=== PATIENT | male | born 1955 | race Caucasian/White ===

== ENCOUNTER 2020-05-01 06:47 | Inpatient (IN) | payer BC, MEDICARE ==
[~2020-05-01] VITALS: Ht 180.3 cm; Wt 117.6 kg
[~2020-05-01 06:47] MED LIST: HYDR-531 PO
[2020-05-01] MEDS ORDERED: ceFAZolin 1GM/50ML 100 ML IV ONE (07:12)
[2020-05-01] MEDS ORDERED: ACETAMINOPHEN IV 100 ML IV ONE (07:12)
[2020-05-01] MEDS ORDERED: CELECOXIB 100 MG CAP PO ONE (07:15)
[2020-05-01] MEDS: ceFAZolin 1GM 2 GM in D5W 5% 100 ML IV ONE ×2 (07:15→07:42)
[2020-05-01] MEDS ORDERED: PREGABALIN CAPSULE 75 MG CAP PO ONE (07:15)
[2020-05-01] MEDS ORDERED: ACETAMINOPHEN IV 1000 MG/100ML (10MG/ML) IV ONE (07:15)
[2020-05-01] MEDS ORDERED: SUCCINYLCHOLINE CHLORIDE 20 MG/ML 10ML VIAL IV ONE (07:35)
[2020-05-01] MEDS ORDERED: fentaNYL CITRATE 100 MCG/2 ML VL ONE ×2 (07:48→08:12)
[2020-05-01] MEDS ORDERED: MIDAZOLAM HCL 1MG/1ML-2 ML VIAL ONE (07:48)
[2020-05-01] MEDS ORDERED: MORPHINE SULF(PF) 0.5MG/ML 10ML VIAL ONE (07:48)
[2020-05-01] MEDS ORDERED: PROPOFOL 10 MG/ML 20 ML IV ONE (07:50)
[2020-05-01] MEDS ORDERED: ROCURONIUM 10MG/ML 10ML VIAL IV ONE (08:12)
[2020-05-01] MEDS ORDERED: HYDROmorphone HCL 2 MG/ML VL ONE (08:39)
[2020-05-01] MEDS ORDERED: ePHEDrine SULFATE 50 MG/ML AMP IV PRN (09:15)
[2020-05-01] MEDS ORDERED: ONDANSETRON HCL 4 MG/2 ML VIAL IV PRN ×2 (09:15→10:30)
[2020-05-01] MEDS ORDERED: HYDROmorphone HCL 2 MG/ML VL IV PRN (09:15)
[2020-05-01] MEDS ORDERED: hydrALAZINE HCL 20 MG/ML VL IV PRN (09:15)
[2020-05-01] MEDS: LACTATED RINGER'S 1,000 ML IV SCH ×2 (10:21→20:21)
[2020-05-01] MEDS ORDERED: ACETAMINOPHEN 325 MG TAB PO PRN (10:30)
[2020-05-01] MEDS ORDERED: NITROGLYCERIN 0.4 MG SL TAB SL PRN (10:30)
[2020-05-01] MEDS ORDERED: MORPHINE SULF INJ 2 MG/ML SYRINGE 1ML IV PRN (10:30)
[2020-05-01] MEDS ORDERED: ceFAZolin 1GM/50ML 50 ML IV SCH (10:30)
[2020-05-01] MEDS ORDERED: ENOXAPARIN SOD 40 MG/0.4 ML SYRINGE SC ONE (10:45)
[2020-05-01] MEDS: HYDROmorphone HCL 2 MG/ML VL IV PRN ×5 (10:49→20:35)
--- NOTE | 2020-05-01 12:24 | NUR ---
Report received from maddie GRAPHIC DESIGNER. RLPASTORA brought to bed 293B following left knee arthroplasty, on cardiac care unit nurse and portable oxygen. Patient transfered to unit bed, connected to traffic monitor specialist #[id number] and oxygen. Surgical site assessed for any bleeding, redness or swelling. Pedal pulses on affected leg assessed for positive tissue perfusion. Patient instructed on need to notify staff immediately if any pain, burning or wetness to site. All questions and concerns addressed, patient verbalized understanding of all education and instruction. See notes for any further.
[2020-05-01 12:27] VITALS: BP 144/92
[2020-05-01 13:00] VITALS: BP 144/92
[2020-05-01] MEDS ORDERED: INDO50CA82 PO (13:42)
[2020-05-01] MEDS ORDERED: ALL100T PO (13:42)
[2020-05-01] MEDS: ceFAZolin 1GM/50ML 50 ML IV SCH ×2 (14:03→18:51)
[2020-05-01] MEDS: KETOROLAC TROMETH 30 MG/ML 1ML VIAL IV SCH ×2 (14:05→17:44)
[2020-05-01] MEDS: traMADol HCL 50 MG TAB PO PRN (14:06)
[2020-05-01] MEDS: SODIUM CHLOR 0.9% PF (SALINE LOCK) 10ML VIAL/SYR IV SCH ×2 (14:11→22:11)
--- NOTE | 2020-05-01 15:00 | NUR ---
BEDSIDE PULSE PLACED PER DOCTOR'S ORDERS. ALARMS ARE ON AND FUNCTIONING PROPERLY. BEDSIDE PLUGGED INTO REDWALL OUTLET.
[2020-05-01 16:00] VITALS: BP 158/95
--- NOTE | 2020-05-01 19:00 | NUR ---
CLOSING SHIFT NOTE ENDORSED CARE TO NEUROPHYSIOLOGY TECH RN NADER. PATIENT HAS NO S/S OF DISTRESS/SOB OR PAIN AT THIS TIME.
--- NOTE | 2020-05-01 19:01 | NUR ---
ENDORSED MRSA SWAB TO RN NADER.
--- NOTE | 2020-05-01 19:25 | NUR ---
Opening Shift Note: Assumed care of patient, awake and alert. No S/S of distress/SOB or pain. Bed in lowest locked position, side rails up x 2, call light within reach. Patient on CPM at 45 degrees. Patient instructed on POC and to call for assist PRN, will continue to monitor for changes Q1hr and PRN.
--- NOTE | 2020-05-01 20:37 | NUR ---
MRSA SWAB COLLECTED AND SENT
[2020-05-01 21:54] VITALS: BP 132/70
[2020-05-01] MEDS: DOCUSATE SOD 100 MG CAP PO SCH (22:00)
--- NOTE | 2020-05-02 00:17 | NUR ---
PATIENT REQUESTED TO HAVE CMP MACHINE STOPPED SO HE CAN GET SOME SLEEP.
[2020-05-02] MEDS: ceFAZolin 1GM/50ML 50 ML IV SCH (00:37)
[2020-05-02] MEDS: KETOROLAC TROMETH 30 MG/ML 1ML VIAL IV SCH ×4 (00:37→18:12)
[2020-05-02] MEDS: HYDROmorphone HCL 2 MG/ML VL IV PRN ×2 (02:55→23:20)
--- NOTE | 2020-05-02 03:26 | NUR ---
CLOSING NOTE: Patient resting in bed. No S/S of distress. Care endorsed.
--- NOTE | 2020-05-02 03:30 | NUR ---
Opening Shift Note Assumed care of patient, asleep, even, unlabored breaths. No S/S of distress/SOB or pain. Will continue to monitor for changes Q1hr and PRN.
[2020-05-02 05:00] VITALS: BP 139/75
[2020-05-02] MEDS: SODIUM CHLOR 0.9% PF (SALINE LOCK) 10ML VIAL/SYR IV SCH ×3 (05:39→21:27)
[2020-05-02] MEDS: LACTATED RINGER'S 1,000 ML IV SCH ×3 (05:40→21:27)
--- NOTE | 2020-05-02 05:45 | NUR ---
BANUELOS BANUELOS CATHETER REMOVED PER MD ORDERS. EDUCATED PATIENT TO INFORM THIS RN OR THE VOLLEYBALL PLAYER OF WHEN HE URINATES. APPROXIMATELY 125ML CLOUDY ORANGE YELLOW URINE DISCARDED WITH BANUELOS
[2020-05-02 05:56] LABS: Hematocrit 36.8 % (41.0-53.0); Hemoglobin 12.5 g/dL (13.5-17.5)
[2020-05-02 06:17] LABS: Calcium 8.2 mg/dL (8.5-10.1); Potassium 4.1 mmol/L (3.5-5.1)
[2020-05-02 06:20] LABS: BUN/Creatinine Ratio 20.5; Bilirubin, Total 0.6 mg/dL (0.2-1.0); Total Protein 6.8 g/dL (6.4-8.2)
[2020-05-02] MEDS: HYDROcodone-ACET 10/325MG TAB PO PRN ×2 (08:08→15:15)
[2020-05-02 08:57] VITALS: BP 127/76
[2020-05-02] MEDS: ENOXAPARIN SOD 40 MG/0.4 ML SYRINGE SC SCH (09:41)
[2020-05-02] MEDS: DOCUSATE SOD 100 MG CAP PO SCH ×2 (09:41→21:27)
--- NOTE | 2020-05-02 10:30 | NUR ---
PHYSICAL THERAPY PATIENT AMBULATING IN HALLS WITH PHYSICAL THERAPY. NO S/S OF DISTRESS, SOB. NO C/O PAIN AT THIS TIME. WILL CONTINUE TO MONITOR
--- NOTE | 2020-05-02 11:45 | NUR ---
CPM PATIENT ON CPM FOR LEFT KNEE. TOLERATING WELL
[2020-05-02 12:42] VITALS: BP 127/69
--- NOTE | 2020-05-02 15:07 | NUR ---
MICROBIOLOGY MICROBIOLOGY CALLED RE: PATIENT POSITIVE FOR MRSA IN NARES. AWARE
[2020-05-02 16:59] VITALS: BP 131/80
[2020-05-02] MEDS: traMADol HCL 50 MG TAB PO PRN (21:27)
[2020-05-02 22:00] VITALS: BP 121/68
[2020-05-03] MEDS: HYDROmorphone HCL 2 MG/ML VL IV PRN ×2 (03:00→09:09)
[2020-05-03 05:06] VITALS: BP_SYST 143; BP_SYST 155; BP_DIAS 71; BP_DIAS 80
[2020-05-03] MEDS: SODIUM CHLOR 0.9% PF (SALINE LOCK) 10ML VIAL/SYR IV SCH ×3 (05:36→21:53)
[2020-05-03] MEDS ORDERED: HYDROcodone-ACET 10/325MG TAB PO PRN (07:45)
[2020-05-03 08:06] LABS: Hematocrit 34.5 % (41.0-53.0); Hemoglobin 11.9 g/dL (13.5-17.5)
[2020-05-03 08:50] VITALS: BP 134/81
[2020-05-03] MEDS: ENOXAPARIN SOD 40 MG/0.4 ML SYRINGE SC SCH (09:10)
[2020-05-03] MEDS: DOCUSATE SOD 100 MG CAP PO SCH ×3 (09:11→21:53)
[2020-05-03] MEDS: oxyCODONE ER 10 MG TAB PO SCH ×2 (10:46→21:53)
[2020-05-03] MEDS: LACTATED RINGER'S 1,000 ML IV SCH ×2 (12:21→21:53)
[2020-05-03 12:54] VITALS: BP 138/83
--- NOTE | 2020-05-03 15:46 | NUR ---
Assessment Patient is a 64-year-old male who is alert and oriented. Prior to admission patient lived home with his Carmen and functioned independently. Patient informed me he can care for his own ADLs. Patient informed me he does not have any medical equipment now. Per patient prior to getting surgery provider order a CPM for him to take home with him which he has at bedside. Per patient he will return to his prior living arrangements and family will transport him home. Advised patient there is a social service consult for a walker and home health physical therapy twice a week for two weeks. Advised patient clinical information will be faxed to contracted agency for home health and [facility] for the walker. Informed patient he has a right to participate in all discharge planning. Patient verbalized understanding and agreed to discharge plan. Per Kathe with [facility] walker will be deliver to bedside between 12:00-14:00. Faxed clinical information to [facility] [phone]. Per Jaja with [facility] patient has a 10% co-pay. Per Jaja she contact patient regarding co-pay and patient agrees to pay co-pay. Per Jaja with [facility] patient has been accepted and service to start within 24-48hrs upon d/c day. Patient was informed with co-pay. Patient verbalize understanding. Addendum: 05/03/20 at 1552 by YANG MARTINS Amended: Links added.
--- NOTE | 2020-05-03 16:00 | NUR ---
DR BARFIELD AT BEDSIDE. NEW ORDERS RECEIVED FOR AM LABS.
[2020-05-03 17:00] VITALS: BP 137/86
--- NOTE | 2020-05-03 17:06 | NUR ---
PATIENT HAS HAD CPM ON TWICE THIS SHIFT. AM AT APPROXIMATELY 0900 FOR 2 HOURS. THIS AFTERNOON AT APPROXIMATELY 1430 TO 1630.
--- NOTE | 2020-05-03 19:40 | NUR ---
Opening Shift Note Assumed care of patient, awake and alert. No S/S of distress/SOB or pain. Instructed on POC and to call for assist PRN. Bed in lowest locked position, call light within reach, side rails up x2, fall precautions in place. Will continue to monitor for changes Q1hr and PRN.
[2020-05-03] MEDS: HYDROcodone-ACET 10/325MG TAB PO PRN (20:09)
--- NOTE | 2020-05-03 21:55 | NUR ---
Telemetry Patient S/P Left knee arthroplasty more than 24 hours. Per MD orders tele monitor for 24 hours, tele monitor remains on patient upon assessment. Tele DC'd and sent to ICU. Vitals WNL. Patient denies chest pain or SOB. Charge nurse aware.
[2020-05-03 22:06] VITALS: BP 130/75
[2020-05-04] MEDS: HYDROcodone-ACET 10/325MG TAB PO PRN (04:59)
[2020-05-04 05:00] VITALS: BP 137/78
[2020-05-04] MEDS: SODIUM CHLOR 0.9% PF (SALINE LOCK) 10ML VIAL/SYR IV SCH (06:00)
[2020-05-04 06:32] LABS: Basophils # (auto) 0 10 ^3/uL (0-0.2); Basophils % (auto) 0.3 % (0.0-2.0); Eosinophils # (auto) 0.2 10 ^3/uL (0-0.8); Eosinophils % (auto) 3.1 % (0.0-7.0); Hematocrit 33.9 % (41.0-53.0); Hemoglobin 11.7 g/dL (13.5-17.5); Lymphocytes # (auto) 0.5 10 ^3/uL (0.4-5.4); Lymphocytes % (auto) 6.6 % (10.0-50.0); Mean Corpuscular Hemoglobin 33.5 pg (28.0-32.0); Mean Corpuscular Hgb Conc. 34.5 g/dL (32.0-36.0); Mean Corpuscular Volume 97.2 fL (80.0-100.0); Monocytes % (auto) 12.9 % (0.0-12.0); Neutrophils # (auto) 5.8 10 ^3/uL (1.6-8.6); Neutrophils % (auto) 77.1 % (37.0-80.0); Platelet Count (auto) 233 10^3/uL (140-450); Red Blood Cells 3.49 10^6/uL (4.5-5.90); Red Cell Distribution Width 12.5 % (11.8-14.3); White Blood Cell 7.6 10^3/uL (4.4-10.8)
[2020-05-04 06:48] LABS: Potassium 3.9 mmol/L (3.5-5.1)
[2020-05-04 07:17] LABS: BUN/Creatinine Ratio 17.1; Calcium 8.6 mg/dL (8.5-10.1)
--- NOTE | 2020-05-04 07:54 | NUR ---
Opening Shift Note Assumed care of patient, awake and alert laying in bed. No S/S of distress/SOB or pain. Instructed on POC and to call for assist PRN, will continue to monitor for changes Q1hr and PRN.
[2020-05-04] MEDS: LACTATED RINGER'S 1,000 ML IV SCH (08:21)
[2020-05-04 09:00] VITALS: BP 123/81
[2020-05-04] MEDS: oxyCODONE ER 10 MG TAB PO SCH (09:43)
[2020-05-04] MEDS: DOCUSATE SOD 100 MG CAP PO SCH (09:43)
--- NOTE | 2020-05-04 09:45 | NUR ---
Lovenox Educated patient on how to self administer Lovenox sc. Patient refused return demonstration.
[2020-05-04] MEDS: ENOXAPARIN SOD 40 MG/0.4 ML SYRINGE SC SCH (09:48)
[2020-05-04 13:00] VITALS: BP 125/73
[2020-05-04 13:02] VITALS: BP 128/81
--- NOTE | 2020-05-04 14:15 | NUR ---
D/C Planning Faxed updated order to [facility]. Informed ELOINA Shelby.
--- NOTE | 2020-05-04 16:15 | NUR ---
Hospitalist Raoul Lowery at bedside.
--- NOTE | 2020-05-04 16:42 | NUR ---
Discharge instructions given as ordered. Encourage to follow up with PMD as instructed. All questions and concerns addressed. Patient verbalized understanding. Medication reconciliation form completed and copy given to patient. IV removed with catheter intact and pressure dressing applied. Patient taken to vehicle via wheelchair with all personal belongings, accompanied by staff. Medications picked up by patient at [facility]. No distress noted at time of departure.
== END 2020-05-04 16:30 | disposition home health service (06) | DRG 470 ==
LOC: OVERFLOW 06:47 → EDSTATUS 07:45 → EDUNIT# 07:45 → WEST WING 12:00
PROVIDERS: ADMIT Orthopaedic Surgery Adult Reconstructive Orthopaedic Surgery; ATTEND Orthopaedic Surgery Adult Reconstructive Orthopaedic Surgery
PROC: 0QBH0ZZ Excision of Left Tibia, Open Approach (ICD-10-PCS; 2020-05-01)
PROC: 0SND0ZZ Release Left Knee Joint, Open Approach (ICD-10-PCS; 2020-05-01)
PROC: 0SRD0J9 Replacement of Left Knee Joint with Synthetic Substitute, Cemented, Open Approach (ICD-10-PCS; principal; 2020-05-01 07:44)
DX: M17.12 Unilateral primary osteoarthritis, left knee (principal); E66.9 Obesity, unspecified; F17.200 Nicotine dependence, unspecified, uncomplicated; M92.52 Juvenile osteochondrosis of tibia tubercle; Z96.652 Presence of left artificial knee joint; M21.262 Flexion deformity, left knee; M21.062 Valgus deformity, not elsewhere classified, left knee; Z82.49 Family history of ischemic heart disease and other diseases of the circulatory system; Z79.899 Other long term (current) drug therapy; Z68.36 Body mass index [BMI] 36.0-36.9, adult; Z85.46 Personal history of malignant neoplasm of prostate; Z20.828 Contact with and (suspected) exposure to other viral communicable diseases
CPT/HCPCS: 36415; 73560; 80048; 80053; 85014; 85018; 85025; 86850; 86900; 86901; 87081; 94762; G0378; J0131; J0330; J0690; J1885; J2250; J2704; J7060

== ENCOUNTER 2021-06-04 06:15 | Inpatient (IN) | payer BC, MEDICARE ==
[~2021-06-04] VITALS: Ht 180.3 cm; Wt 123.3 kg
[~2021-06-04 06:15] MED LIST changes: +ALLO300T2 PO; +INDO50CA82 PO
[2021-06-04] MEDS ORDERED: ceFAZolin 1GM/50ML 100 ML IV ONE (06:31)
[2021-06-04] MEDS ORDERED: BUPIVACAINE W/ EPINEPH 0.25% INJ 50ML MDV ONE (07:06)
[2021-06-04] MEDS ORDERED: TRANEXAMIC ACID 20 ML ONE (07:06)
[2021-06-04] MEDS ORDERED: CELECOXIB 100 MG CAP ONE (07:07)
[2021-06-04] MEDS ORDERED: PREGABALIN CAPSULE 75 MG CAP ONE (07:08)
[2021-06-04] MEDS ORDERED: ACETAMINOPHEN IV 100 ML IV ONE (07:08)
[2021-06-04] MEDS ORDERED: VANCOMYCIN HCL 1000 MG VL ONE (07:09)
[2021-06-04] MEDS ORDERED: ROPIVACAINE 0.5% (5MG/ML) 20ML AMPULE IJ ONE (07:10)
[2021-06-04] MEDS ORDERED: MORPHINE SULF PF 2 MG/2 ML SYRG ONE ×2 (07:11→07:26)
[2021-06-04] MEDS ORDERED: KETOROLAC TROMETH 30 MG/ML 1ML VIAL ONE (07:14)
[2021-06-04] MEDS ORDERED: TETRACAINE 1% INJ 2 ML VIAL IJ ONE (07:21)
[2021-06-04] MEDS ORDERED: fentaNYL CITRATE 100 MCG/2 ML VL ONE (07:23)
[2021-06-04] MEDS ORDERED: MIDAZOLAM HCL 2MG/2ML 2ml VIAL (1mg/ml) ONE ×3 (07:24→08:07)
[2021-06-04] MEDS ORDERED: CELECOXIB 100 MG CAP PO ONE (07:30)
[2021-06-04] MEDS ORDERED: ACETAMINOPHEN IV 1000 MG/100ML (10MG/ML) IV ONE (07:30)
[2021-06-04] MEDS ORDERED: PREGABALIN CAPSULE 75 MG CAP PO ONE (07:30)
[2021-06-04] MEDS ORDERED: ceFAZolin 2 GM in D5W 5% 100 ML IV ONE (07:30)
[2021-06-04] MEDS ORDERED: PROPOFOL 10 MG/ML 20 ML IV ONE (07:46)
[2021-06-04] MEDS ORDERED: DexAMETHasone SOD PHOS 10MG/1ML VIAL INJ ONE (07:46)
[2021-06-04] MEDS ORDERED: diphenhdrAMINE HCL 50 MG/1 ML VL IV PRN (08:15)
[2021-06-04] MEDS ORDERED: MIDAZOLAM HCL 2MG/2ML 2ml VIAL (1mg/ml) IV PRN (08:15)
[2021-06-04] MEDS ORDERED: ONDANSETRON HCL 4 MG/2 ML VIAL IV PRN ×3 (08:15→09:30)
[2021-06-04] MEDS ORDERED: NALOXONE HCL 0.4 MG/ML VIAL IV PRN (08:15)
[2021-06-04] MEDS ORDERED: ePHEDrine SULFATE 50 MG/ML AMP IV PRN (08:15)
[2021-06-04] MEDS ORDERED: LABETALOL HCL 5 MG/ML 4ML SYRINGE IV PRN (08:15)
[2021-06-04] MEDS ORDERED: HYDROmorphone HCL 2 MG/ML VL IV PRN ×2 (08:15→09:30)
[2021-06-04] MEDS ORDERED: NALBUPHINE HCL 10 MG/1ml INJECTION SUBCUT ONE (08:15)
[2021-06-04] MEDS ORDERED: DexAMETHasone SOD PHOS 10MG/1ML VIAL INJ IV PRN (08:15)
[2021-06-04] MEDS ORDERED: ACETAMINOPHEN 325 MG TAB PO PRN (09:30)
[2021-06-04] MEDS ORDERED: BISACODYL 5 MG EC TAB PO PRN (09:30)
[2021-06-04] MEDS ORDERED: MORPHINE SULFATE INJECTION 2 MG/ML SYRG IV PRN (09:30)
[2021-06-04] MEDS ORDERED: NITROGLYCERIN 0.4 MG SL TAB SL PRN (09:30)
[2021-06-04] MEDS ORDERED: OXYCODONE W/ ACETAMINOPHEN 5/325MG TABLET PO PRN (09:30)
[2021-06-04] MEDS: LACTATED RINGER'S 1,000 ML IV SCH ×2 (09:30→19:30)
[2021-06-04] MEDS: ENOXAPARIN SOD 40 MG/0.4 ML SYRINGE SC SCH (10:00)
[2021-06-04] MEDS: oxyCODONE ER 10 MG TAB PO SCH ×2 (10:00→22:09)
[2021-06-04] MEDS: DOCUSATE SOD 100 MG CAP PO SCH ×2 (12:50→22:00)
[2021-06-04] MEDS: PANTOPRAZOLE 40 MG TAB PO SCH (12:50)
[2021-06-04 14:00] VITALS: BP 146/90
[2021-06-04 15:00] VITALS: BP 141/101
[2021-06-04] MEDS: SODIUM CHLOR 0.9% PF (SALINE LOCK) 10ML VIAL/SYR IV SCH ×2 (15:00→22:12)
[2021-06-04] MEDS: KETOROLAC TROMETH 30 MG/ML 1ML VIAL IV SCH ×2 (15:03→22:09)
[2021-06-04 15:12] VITALS: BP 125/76
[2021-06-04] MEDS: ceFAZolin 2 GM in D5W 5% 100 ML IV SCH ×2 (15:53→22:12)
[2021-06-04 17:00] VITALS: BP 148/101
[2021-06-04 22:00] VITALS: BP 119/69
[2021-06-05] VITALS (16 sets, daily range): BP systolic 108–157; BP diastolic 64–93
[2021-06-05] MEDS: LACTATED RINGER'S 1,000 ML IV SCH ×2 (00:10→16:10)
[2021-06-05] MEDS: ceFAZolin 2 GM in D5W 5% 100 ML IV SCH (05:08)
[2021-06-05] MEDS: KETOROLAC TROMETH 30 MG/ML 1ML VIAL IV SCH (05:08)
[2021-06-05] MEDS: SODIUM CHLOR 0.9% PF (SALINE LOCK) 10ML VIAL/SYR IV SCH ×3 (05:09→21:39)
[2021-06-05 05:31] LABS: Hematocrit 37.4 % (41.0-53.0); Hemoglobin 12.8 g/dL (13.5-17.5)
[2021-06-05 05:38] LABS: Albumin 2.8 g/dL (3.4-5.0); Calcium 7.9 mg/dL (8.5-10.1); Magnesium 2.2 mg/dL (1.6-2.6); Potassium 4.3 mmol/L (3.5-5.1)
[2021-06-05 05:42] LABS: BUN/Creatinine Ratio 26.5; Bilirubin, Total 0.4 mg/dL (0.2-1.0); Total Protein 6.3 g/dL (6.4-8.2)
[2021-06-05] MEDS: DOCUSATE SOD 100 MG CAP PO SCH ×2 (09:10→21:38)
[2021-06-05] MEDS: PANTOPRAZOLE 40 MG TAB PO SCH (09:11)
[2021-06-05] MEDS: oxyCODONE ER 10 MG TAB PO SCH ×2 (09:11→21:39)
[2021-06-05] MEDS: ENOXAPARIN SOD 40 MG/0.4 ML SYRINGE SC SCH (09:11)
[2021-06-05] MEDS ORDERED: INDO50CA82 PO (11:49)
[2021-06-05] MEDS: OXYCODONE W/ ACETAMINOPHEN 5/325MG TABLET PO PRN ×2 (13:36→17:23)
[2021-06-05] MEDS ORDERED: TAMSULOSIN HYDROCHLORIDE 0.4 MG CAP PO SCH (18:00)
[2021-06-06] MEDS: OXYCODONE W/ ACETAMINOPHEN 5/325MG TABLET PO PRN (00:32)
[2021-06-06] MEDS: LACTATED RINGER'S 1,000 ML IV SCH ×2 (01:26→11:30)
[2021-06-06] MEDS: SODIUM CHLOR 0.9% PF (SALINE LOCK) 10ML VIAL/SYR IV SCH ×2 (05:01→14:50)
[2021-06-06 05:21] VITALS: BP 134/44
[2021-06-06 05:55] LABS: Calcium 7.7 mg/dL (8.5-10.1); Potassium 3.9 mmol/L (3.5-5.1)
[2021-06-06 05:59] LABS: Basophils # (auto) 0 10 ^3/uL (0-0.2); Basophils % (auto) 0.2 % (0.0-2.0); Eosinophils # (auto) 0 10 ^3/uL (0-0.8); Eosinophils % (auto) 0.5 % (0.0-7.0); Hematocrit 35.1 % (41.0-53.0); Lymphocytes # (auto) 0.7 10 ^3/uL (0.4-5.4); Lymphocytes % (auto) 9.1 % (10.0-50.0); Mean Corpuscular Hemoglobin 32.3 pg (28.0-32.0); Mean Corpuscular Hgb Conc. 34.2 g/dL (32.0-36.0); Mean Corpuscular Volume 94.4 fL (80.0-100.0); Monocytes # (auto) 0.8 10 ^3/uL (0-1.3); Monocytes % (auto) 11.3 % (0.0-12.0); Neutrophils # (auto) 5.7 10 ^3/uL (1.6-8.6); Neutrophils % (auto) 78.9 % (37.0-80.0); Red Blood Cells 3.72 10^6/uL (4.5-5.90); White Blood Cell 7.2 10^3/uL (4.4-10.8)
[2021-06-06 06:01] LABS: Albumin 2.9 g/dL (3.4-5.0); BUN/Creatinine Ratio 23.7; Bilirubin, Total 0.4 mg/dL (0.2-1.0); Total Protein 6.4 g/dL (6.4-8.2)
[2021-06-06 07:30] VITALS: BP 143/78
[2021-06-06 09:00] VITALS: BP 143/78
[2021-06-06] MEDS: ENOXAPARIN SOD 40 MG/0.4 ML SYRINGE SC SCH (09:35)
[2021-06-06] MEDS: DOCUSATE SOD 100 MG CAP PO SCH (09:35)
[2021-06-06] MEDS: PANTOPRAZOLE 40 MG TAB PO SCH (09:35)
[2021-06-06] MEDS: oxyCODONE ER 10 MG TAB PO SCH (09:35)
[2021-06-06 13:00] VITALS: BP 132/74
[2021-06-06 13:35] VITALS: BP 132/74
== END 2021-06-06 15:25 | disposition home health service (06) | DRG 470 ==
LOC: SUR 06:15 → TELE 09:23 → TELE-WESTW 14:18
PROVIDERS: ADMIT Orthopaedic Surgery Adult Reconstructive Orthopaedic Surgery; ATTEND Orthopaedic Surgery
PROC: 0SRC0J9 Replacement of Right Knee Joint with Synthetic Substitute, Cemented, Open Approach (ICD-10-PCS; 2021-06-04)
PROC: 3E0T3BZ Introduction of Anesthetic Agent into Peripheral Nerves and Plexi, Percutaneous Approach (ICD-10-PCS; principal; 2021-06-04 07:31)
DX: M17.11 Unilateral primary osteoarthritis, right knee (principal); M10.9 Gout, unspecified; E66.9 Obesity, unspecified; Z68.37 Body mass index [BMI] 37.0-37.9, adult; Z82.49 Family history of ischemic heart disease and other diseases of the circulatory system; Z20.822 Contact with and (suspected) exposure to COVID-19
CPT/HCPCS: 36415; 73562; 80053; 83735; 85014; 85018; 85025; 86850; 86900; 86901; 97110; 97116; 97163; 97530; G0378; J0131; J0690; J1100; J1885; J2250; J2704; J7060